=== PATIENT | male | born 1940 | race Caucasian/White ===

== ENCOUNTER 2019-01-13 12:14 | Observation (INO) | payer MEDICARE, OTHER ==
[~2019-01-13] VITALS: Ht 177.8 cm; Wt 101.7 kg
[~2019-01-13 12:14] MED LIST: ADVIL200 MG PO; ALLOPURINOL300 MG PO; AMLODIPINE BESYL5 MG PO; ASPIRIN EC81 MG PO; COZAAR100 MG PO; INDOMETHACIN50 MG PO; METOPROLOL SUC100 MG PO; METOPROLOL TAR100 MG PO; METOPROLOL TART50 MG PO; NORCO 7.5-3251 EACH PO; OMEPRAZOLE20 MG PO; SIMVASTATIN20 MG PO; TRIAMTERENE-HC1 EAC1 PO
[2019-01-13] MEDS ORDERED: ROBAXIN-750750 MG PO (12:32)
--- NOTE | 2019-01-13 17:30 | NUR ---
PT RESTING IN BED WITH FINACE AT BEDSIDE. PT EATING DINNER. NEURO CHECK COMPLETE WITHIN NORMAL LIMITS. CALL LIGHT WITHIN REACH. NO NEEDS/CONCERNS AT THIS TIME.
--- NOTE | 2019-01-13 18:51 | NUR ---
PT RESTING IN BED WITH FINACE AT BEDSIDE. NO NEW DEFICITS PER NEURO ASSESSMENT SINCE ADMIT. PT ALERT AND ORIENTED WATCHING TV. CALL LIGHT WITHIN REACH.
--- NOTE | 2019-01-13 19:00 | NUR ---
PT ADMITTED FROM ED THIS AFTERNOON FOR SUBDURAL HEMATOMA. PT REQUIRES FREQUENT NEURO CHECKS. PT ON BEDREST WITH BEDSIDE COMMODE PRIVALAGES WITH NURSING STAFF TO BE IN ROOM. MD TO BE NOTIFIED IMMIDEATILY OF ANY CHANGES.
--- NOTE | 2019-01-13 19:06 | EKG ---
[facility] [address] [place], [place] [address] Signed Normal sinus rhythm Nonspecific T wave abnormality Abnormal ECG No previous ECGs available Confirmed by UGO AGBRIEL MD ([id number] on 01/13/2019 7:06:44 PM Electronically Signed By: UGO GABRIEL MD 01/13/19 1906 PATIENT NAME: NADIYA DAVIS JR Electrocardiogram DATE OF : 44 PHYSICIAN: UGO GABRIEL MD REPORT #: [id number] REPORT IS CONFIDENTIAL AND NOT TO BE RELEASED WITHOUT AUTHORIZATION
--- NOTE | 2019-01-13 19:48 | NUR ---
HANDOFF REPORT RECEIVED FROM ЕЛЕНА KENDALL. PT RESTING IN BED, HOB ELEVATED. FIANCE AT BEDSIDE. NEURO CHECK COMPLETE. WNL. PT DENIES NEEDS AT THIS TIME. CALL LIGHT IN REACH. PT INSTRUCTED TO USE CALL LIGHT BEFORE GETTING OUT OF BED, VERBALIZES UNDERSTANDING.
--- NOTE | 2019-01-13 20:19 | NUR ---
IN PT ROOM FOR IV LOPRESSOR ADMINISTRATION. VSS, BP 151/77, HR 91. PT RESTING IN BED, C/O CAMACHO, PT STATES "NOT THROBBING OR ANYTHING, I THINK IT MAY BE SINUS RELATED". PT STATES CAMACHO JUST STARTED 10-[address] GABRIEL NOTIF[address]. TELEPHONE ORDERS TO MONITOR PT FOR CHANGES IN CAMACHO, INCREASING PAIN AND NEURO CHECKS Q1H. PT WITH SMALL SPOT SS DRAINAGE FROM BACK OF HEAD. CALL LIGHT IN REACH. FIANCE IN ROOM.
--- NOTE | 2019-01-13 21:26 | NUR ---
NEURO COMPLETE. PT STATES HIS HEAD DOESN'T FEEL ANY DIFFERENT THAN THE PAST HOUR. STATES IT IS A PRESSURE FEELING, TOUCHES THE SIDE OF HEAD ABOVE THE EYEBROW/EAR MOSQUE AREA, AND RUBS HAND ALONG THE FOREHEAD. DRINKING A SEVEN UP, FEMALE FRIEND AT BEDSIDE.
--- NOTE | 2019-01-13 22:43 | NUR ---
NEURO CHECK WNL. PT STATES "CAMACHO IS GETTING BETTER". NO REQUESTS AT THIS TIME. LIGHTS OFF IN ROOM. CALL LIGHT IN REACH.
--- NOTE | 2019-01-13 23:38 | NUR ---
PT SLEEPING, AWAKENS TO VOICE. NEURO CHECK COMPLETE. WNL. PT STATES CAMACHO IS "JUST REALLY LIGHT". NO REQUESTS AT THIS TIME.
--- NOTE | 2019-01-14 00:03 | NUR ---
VERBAL ORDER FROM MD FOR NEURO CHECKS Q2H.
--- NOTE | 2019-01-14 01:38 | NUR ---
PT RESTING IN BED, AWAKE, RATES PAIN IN BACK 4-5/10, PRN TYLENOL PO ADMINISTERED. SCHEDULED LOPRESSOR IV ADMINISTERED. NEURO CHECK WNL. ICE WATER PROVIDED. URINAL EMPTIED. CALL LIGHT IN REACH.
--- NOTE | 2019-01-14 04:06 | NUR ---
PT SLEEPING, AWAKENS TO VOICE. NEURO CHECK WNL, PUPILS EQUAL ROUND AND REACTIVE TO LIGHT. PT DENIES HEADACHE AT THIS TIME. CALL LIGHT IN REACH. LIGHTS OFF IN ROOM.
--- NOTE | 2019-01-14 05:19 | NUR ---
NEURO CHECKS Q2H, ASSESSMENTS WNL. CAMACHO AT START OF SHIFT, RESOLVED. PRN TYLENOL ADMINISTERED FOR BACK PAIN. VSS. SCHEDULED LOPRESSOR IV Q6H. PT ON BEDREST WITH BATHROOM PRIVILEGES TO BSC WITH NURSING STAFF. CT SCAN SCHEDULED FOR THIS MORNING.
--- NOTE | 2019-01-14 06:15 | NUR ---
PT SLEEPING, AWAKENS TO VOICE. VSS. ASSESSMENT COMPLETE. PT DENIES ANY PAIN. NEURO CHECK WNL. PERRL. NO REQUESTS AT THIS TIME. CALL LIGHT IN REACH. FIANCE IN ROOM.
--- NOTE | 2019-01-14 06:59 | NUR ---
PT COMPLAINED OF CHEST/RIB DISCOMFORT, WELL A "PRESSURE" CAMACHO, NOT "REALLY A CAMACHO, HE STATES", MORE OF A PRESSURE/SINUS PRESSURE. MED WITH 650 MG TYLENOL. RADIOLOGY HERE TO TAKE PT TO GET HIS SCAN DONE. RN IN ROOM WHILE TRANSFER OCCURRED.
--- NOTE | 2019-01-14 07:15 | NUR ---
RECIEVED REPORT FROM ЕЛЕНА BOWIE. PT OFF FLOOR AT THIS TIME FOR CT SCAN. SAIRA AT BEDSIDE.
--- NOTE | 2019-01-14 08:49 | NUR ---
PT EATING BREAKFAST AT THIS TIME WTIH DAUGHTER AND FINACE AT BEDSIDE. NEURO ASSESSMENT COMPLETE WITHIN NORMAL LIMITS. PT STATES HEADACHE IS "PRETTY MUCH GONE AWAY" AND PAIN IS 2/10. PT UP TO SIDE OF BED TO USE URINAL. PT ALERT AND ORIENTED X4. AM MEDICATIONS GIVEN. PT HAS NO NEEDS/CONCERNS AT THIS TIME. CALL LIGHT WITHIN REACH.
--- NOTE | 2019-01-14 08:54 | NUR ---
CALLED TO CT AT 0845 REGARDING THIS MORNING'S HEAD CT RESULTS. PEDRO LUIS IN CT INDICATED THAT SHE WOULD REQUEST STAT READ.
--- NOTE | 2019-01-14 09:07 | NUR ---
ASSISTED PT UP TO BSC. FOR TINY BM. SOFT. PT DENIES BEING DIZZY OR LIGHT HEADED. ONLY COMPLAINT IS BACK IS SORE FROM THE FALL.
[2019-01-14] MEDS ORDERED: SIMVASTATIN40 MG PO (09:11)
--- NOTE | 2019-01-14 09:58 | NUR ---
PATIENT IS IN BED RESTING. IN THE ROOM. WARM WASHCLOTH OFFERED. CALL LIGHT IN REACH. NO FURTHER NEEDS AT THIS TIME. PATIENT ATE BREAKFAST.
--- NOTE | 2019-01-14 10:40 | NUR ---
PT RESTING IN BED WITH SAIRA AT BEDSIDE. MD IN ROOM DISCUSSING PLAN. NEURO ASSESSMENT COMPLETED WITH NO CHANGES. PT HAS NO NEEDS/CONCERNS AT THIS TIME.
--- NOTE | 2019-01-14 11:29 | NUR ---
ROAD TEST DONE PER MD ORDER. PT TOLERATED WELL AND WALKED AROUND UNIT WITH OUT DIFFICULTIES/ASSISTANCE.
--- NOTE | 2019-01-14 12:36 | NUR ---
PT DRESSED, AWAITING FOR LUNCH TO ARRIVE. SAIRA AT BEDSIDE WORKING ON TRAVEL PLANS WITH PT. NEURO ASSESSMENT COMPLETE WITH NO CHANGES. PT STATES NO LONGER HAS A HEADACHE. PT PREPARING FOR DISCHARGE. NO NEEDS/CONCERNS AT THIS TIME. CALL LIGHT WITHIN REACH.
== END 2019-01-14 13:45 | disposition home or self-care (01) ==
LOC: ED 12:14 → MS 12:15
PROVIDERS: ADMIT Internal Medicine
DX: S06.5X9A Traumatic subdural hemorrhage with loss of consciousness of unspecified duration, initial encounter (principal); S01.01XA Laceration without foreign body of scalp, initial encounter; I10 Essential (primary) hypertension; R40.2362 Coma scale, best motor response, obeys commands, at arrival to emergency department; R40.2142 Coma scale, eyes open, spontaneous, at arrival to emergency department; R40.2252 Coma scale, best verbal response, oriented, at arrival to emergency department; E78.5 Hyperlipidemia, unspecified; K21.9 Gastro-esophageal reflux disease without esophagitis; W18.30XA Fall on same level, unspecified, initial encounter; Y92.009 Unspecified place in unspecified non-institutional (private) residence as the place of occurrence of the external cause; Z87.891 Personal history of nicotine dependence; Z79.82 Long term (current) use of aspirin; Z79.899 Other long term (current) drug therapy
CPT/HCPCS: 70360; 70450; 71101; 72040; 80053; 81001; 84484; 85025; 85610; 85730; 93005; 93010; 96374; 96376; 99285-25; G0378; G0480